=== PATIENT | female | born 1970 ===

== ENCOUNTER 2016-10-05 19:44 | Emergency (ER) | payer MEDICAID ==
[2016-10-05 19:44] VITALS: BMI 36.0
[2016-10-05 20:10] VITALS: TEMP 98.8
[2016-10-05 21:03] LABS: RBC URINE 48 /hpf (0-3); URINE BILIRUBIN NEGATIVE (NEGATIVE); URINE BLOOD 3+ (NEGATIVE); URINE COLOR Yellow (YELLOW); URINE GLUCOSE (UA) NORMAL (Normal); URINE KETONE NEGATIVE (NEGATIVE); URINE LEUKOCYTE ESTERASE NEG Leu/uL (Negative); URINE PROTEIN NEGATIVE (NEGATIVE); URINE UROBILINOGEN NORMAL mg/dL (0.2-1.0); WBC URINE 9 /hpf (0-5)
--- NOTE | 2016-10-05 21:47 | C.PDOC ---
History Of Present Illness 45 y/o female with Hx of HTN presents to ED with complaints of feeling dizzy, lightheaded and onset nausea since earlier today. Patient states she takes HTN medications but when "she feels like her liver gets heavy she stops because she knows the liver is the laboratory of the body". She has not taken her HCTZ for the past 2 weeks. Patient reports symptoms developed while on the bus today and she went outside felt better and once she got home symptoms worsened. Patient is requesting albuterol and inhaler because she is having trouble breathing and feels a mild headache. No other complaints at this time. Time Seen by Provider: 10/05/16 21:17 Chief Complaint (Nursing): Headache History Per: Patient History/Exam Limitations: no limitations Onset/Duration Of Symptoms: Days Current Symptoms Are (Timing): Still Present Past Medical History Reviewed: Historical Data, Nursing Documentation, Vital Signs Vital Signs: Last Vital Signs Temp 98.8 F 10/05/16 20:05 Pulse 87 10/05/16 23:25 Resp 20 10/05/16 23:25 BP 178/101 H 10/05/16 23:25 Pulse Ox 97 10/05/16 23:25 - Medical History PMH: Arthritis, Asthma, Hepatitis (B), HTN Surgical History: Tonsillectomy - [facility] Procedures INTRODUCTION OF SERUM/TOX/VACCINE INTO MUSCLE, PERC APPROACH (04/12/15) Family History: States: Unknown Family Hx - Social History Hx Alcohol Use: No Hx Substance Use: No - Immunization History Hx Tetanus Toxoid Vaccination: No Hx Influenza Vaccination: Yes (up to date) Hx Pneumococcal Vaccination: No (up to date) Review Of Systems Except As Marked, All Systems Reviewed And Found Negative. Constitutional: Negative for: Fever, Chills Cardiovascular: Negative for: Chest Pain Respiratory: Positive for: Shortness of Breath Gastrointestinal: Negative for: Nausea, Vomiting Skin: Negative for: Rash Neurological: Positive for: Dizziness. Negative for: Weakness, Numbness, Headache Physical Exam - Physical Exam Appears: Non-toxic, No Acute Distress Skin: Normal Color, Warm, No Rash Head: Atraumatic, Normacephalic Eye(s): bilateral: Normal Inspection, EOMI Oral Mucosa: Moist Neck: Normal ROM, Supple Chest: Symmetrical Cardiovascular: Rhythm Regular Respiratory: Normal Breath Sounds, No Rales, No Rhonchi, No Wheezing Gastrointestinal/Abdominal: Soft, No Tenderness, No Guarding, No Rebound Extremity: Normal ROM, Capillary Refill (<2 seconds) Neurological/Psych: Oriented x3, Normal Speech, Normal Cognition, Normal Motor, Normal Sensation ED Course And Treatment - Laboratory Results Result Diagrams: 10/05/16 21:47 10/05/16 21:47 Lab Interpretation: No Acute Changes O2 Sat by Pulse Oximetry: 99 (RA) Pulse Ox Interpretation: Normal Progress Note: Patient treated with Clonidine 0.2mg. Blood pressure initially decreased slightly but then increased. Repeat clonidiine 0.1mg ordered. Reevaluation Time: 23:37 Reassessment Condition: Unchanged (Blood pressure is higher than on admission after medicating with Clonidine. Advised admission for hypertensive urgency but patient is refusing to stay. She understands the risk of CVA or cardiac event possibly resulting in significant morbidity or mortality.) Disposition Counseled Patient/Family Regarding: Studies Performed, Diagnosis, Need For Followup, Rx Given - Disposition Referrals: Janna Padilla MD [Medical Doctor] - Disposition: AGAINST MEDICAL ADVICE Disposition Time: 23:40 Condition: SERIOUS Prescriptions: Losartan/Hydrochlorothiazide [Losartan-Hctz 100-25 mg Tab] 1 each PO DAILY #30 tablet Instructions: Hypertensive Crisis (ED) Forms: Ready To Travel (Turkish) Print Language: BELIZEAN - Clinical Impression Clinical Impression: Accelerated hypertension - Scribe Statement The provider has reviewed the documentation as recorded by the Bryce Horta All medical record entries made by the Glenibfrances were at my direction and personally dictated by me. I have reviewed the chart and agree that the record accurately reflects my personal performance of the history, physical exam, medical decision making, and the department course for this patient. I have also personally directed, reviewed, and agree with the discharge instructions and disposition.
[2016-10-05 21:52] LABS: BASO # 0.1 K/uL (0.0-0.2); BASO % 0.6 % (0.0-2.0); EOS # 0.4 K/uL (0.0-0.7); EOS % 4.9 % (0.0-4.0); HEMATOCRIT 42.2 % (34.0-47.0); LYMPH # 2.8 K/uL (1.0-4.3); LYMPH % 34.4 % (20.0-40.0); MEAN CELL VOLUME 88.2 fL (81.0-99.0); MEAN CORPUSCULAR HEMOGLOBIN 28.5 pg (27.0-31.0); MEAN CORPUSCULAR HGB CONC 32.3 g/dL (33.0-37.0); MEAN PLATELET VOLUME 7.5 fL (7.2-11.7); MONO # 0.8 K/uL (0.0-0.8); MONO % 10.3 % (0.0-10.0); RED CELL DISTRIBUTION WIDTH 15.8 % (11.5-14.5)
[2016-10-05 22:01] LABS: CHLORIDE 102 mmol/L (98-107); POTASSIUM 4.4 mmol/L (3.6-5.2); SODIUM 137 mmol/L (132-148)
[2016-10-05 22:04] LABS: ALKALINE PHOSPHATASE 117 U/L (38-126); AST/SGOT 23 U/L (14-36); BILIRUBIN,TOTAL 0.7 mg/dL (0.2-1.3); BLOOD UREA NITROGEN 15 mg/dL (7-17); CALCIUM 8.6 mg/dl (8.6-10.4); CARBON DIOXIDE 26 mmol/L (22-30); GFR AFRICAN-AMERICAN > 60; GLUCOSE,RANDOM 86 mg/dL (65-105); TOTAL PROTEIN 7.2 g/dL (6.3-8.3)
[2016-10-05 22:05] LABS: ALT/SGPT 26 U/L (9-52)
[2016-10-05 23:54] VITALS: BP 191/119; PULSE 86; RESP 22; O2SAT 97
== END 2016-10-06 00:06 | disposition left against medical advice (07) ==
LOC: C.ER 19:44
DX: I10 Essential (primary) hypertension (principal)

== ENCOUNTER 2016-11-17 13:53 | Observation (INO) | payer MEDICAID ==
[2016-11-17 13:53] VITALS: BMI 41.1
[2016-11-17 14:03] VITALS: TEMP 98.6
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
[2016-11-17] MEDS ORDERED: Labetalol 5 mg/ml Inj 20ML IVP STA ×2 (14:40→17:41)
[2016-11-17] MEDS ORDERED: Labetalol 25mg/5ml Syringe ONE ×2 (15:04→18:14)
[2016-11-17 15:18] LABS: BASO # 0.1 K/uL (0.0-0.2); BASO % 0.9 % (0.0-2.0); EOS # 0.4 K/uL (0.0-0.7); EOS % 4.5 % (0.0-4.0); HEMATOCRIT 43.3 % (34.0-47.0); LYMPH # 2.2 K/uL (1.0-4.3); LYMPH % 25.7 % (20.0-40.0); MEAN CELL VOLUME 87.6 fL (81.0-99.0); MEAN CORPUSCULAR HEMOGLOBIN 29.1 pg (27.0-31.0); MEAN CORPUSCULAR HGB CONC 33.3 g/dL (33.0-37.0); MONO # 0.8 K/uL (0.0-0.8); MONO % 9.8 % (0.0-10.0); NRBC % 0.1 % (0.0-2.0); RED CELL DISTRIBUTION WIDTH 15.8 % (11.5-14.5); WHITE BLOOD COUNT 8.4 K/uL (4.8-10.8)
--- NOTE | 2016-11-17 15:43 | RAD ---
HISTORY: cp COMPARISON: No prior. TECHNIQUE: Chest PA and lateral FINDINGS: LUNGS: No active pulmonary disease. PLEURA: No significant pleural effusion identified. No pneumothorax apparent. CARDIOVASCULAR: Normal. OSSEOUS STRUCTURES: No significant abnormalities. VISUALIZED UPPER ABDOMEN: Normal. OTHER FINDINGS: None. IMPRESSION: No active disease.
[2016-11-17 16:48] LABS: CHLORIDE 100 mmol/L (98-107); SODIUM 137 mmol/L (132-148)
[2016-11-17 16:50] LABS: AST/SGOT 44 U/L (14-36); BILIRUBIN,TOTAL 1.4 mg/dL (0.2-1.3); CARBON DIOXIDE 20 mmol/L (22-30); GFR AFRICAN-AMERICAN > 60
[2016-11-17 16:51] LABS: ALB/GLOB RATIO 1.2 (1.0-2.1); ALKALINE PHOSPHATASE 86 U/L (38-126); ALT/SGPT 16 U/L (9-52); BLOOD UREA NITROGEN 14 mg/dL (7-17); CALCIUM 8.4 mg/dl (8.6-10.4); GLUCOSE,RANDOM 88 mg/dL (65-105); TOTAL PROTEIN 7.8 g/dL (6.3-8.3)
[2016-11-17 16:54] LABS: POTASSIUM 5.6 mmol/L (3.6-5.2)
[2016-11-17 18:25] VITALS: BP 171/112; PULSE 80; RESP 18
[2016-11-17 18:28] VITALS: O2SAT 95
--- NOTE | 2016-11-18 14:21 | CARD ---
APPROVED REPORT EKG Measurement Heart [id number] <Conclusion> Normal sinus rhythm Minimal voltage criteria for LVH, may be normal variant T wave abnormality, consider inferior ischemia Abnormal ECG
== END 2016-11-17 22:04 | disposition left against medical advice (07) ==
LOC: C.ER 13:53 → C.9E 18:07 → UNDODISOB 19:05
PROVIDERS: ADMIT Internal Medicine Cardiovascular Disease; ATTEND Internal Medicine Cardiovascular Disease
DX: I16.9 Hypertensive crisis, unspecified (principal); R07.9 Chest pain, unspecified; J45.909 Unspecified asthma, uncomplicated
CPT/HCPCS: 71020; 80053; 84484; 84703; 85025; 96374; G0378

== ENCOUNTER 2017-08-06 16:43 | Emergency (ER) | payer MEDICAID ==
[2017-08-06 16:44] VITALS: BMI 41.1
[2017-08-06 16:49] VITALS: BP 207/145; PULSE 96; RESP 20; TEMP 98.9; O2SAT 97
== END 2017-08-06 16:49 | disposition left against medical advice (07) ==
LOC: C.ER 16:43
DX: Z02.89 Encounter for other administrative examinations (principal); Z00.00 Encounter for general adult medical examination without abnormal findings